=== PATIENT | female | born 1980 | race Caucasian/White ===

== ENCOUNTER 2016-07-12 14:04 | Emergency (ER) | payer OTHER ==
[~2016-07-12] VITALS: Ht 172.7 cm; Wt 104.3 kg
[~2016-07-12 14:04] MED LIST: ACETAMINOPHEN500 M3 PO; APAP/BUTALBITAL1 TA1; FLEXERIL10 MG PO; FLEXERIL5 MG PO; HYDROCODONE1 TABLET PO; HYDROXYZINE HCL50 MG PO; IBUPROFEN 600M600 MG PO; IBUPROFEN200 MG PO; IBUPROFEN600 MG PO; NOMEDS; PREDNISONE 20MG20 MG PO; TESSALON PERLE100 MG PO; ZITHROMAX Z PA250 MG PO
[2016-07-12] MEDS ORDERED: ETODOLAC400 MG PO (16:40)
--- NOTE | 2016-07-12 16:41 | Emergency Room Report ---
History of Present Illness Time Seen by [id number] Presenting Problem in Triage Pt arrived:Walked Presenting Problem:TWISTED LEFT KNEE ON 07/07/16 Onset of symptoms date/time:07/07/16 or onset unknown for: Treatment Prior to Arrival: RN FAMILY Provided by: Sepsis Risk Assessment: Temp: 98.6 B/P: 132/89 MAP: 110 Pulse: 95 Resp: 20 Recent fever? N Clinical Suspician of Infection? N Mental Status: 1 - Regular (Normal Baseline) Sepsis Risk:Low Sepsis Risk Have you (or family members/close friends) recently traveled outside the [place]? N If Yes, where/when: Have you had exposure to infectious disease within the past month? N TB? Other? Specify: Source patient, RN notes reviewed, RN/MD Exam Limitations no limitations Comment This is a 36-year-old lady that twisted her LEFT knee on July 07, here with persistent pain and limping. Patient denies any other associated injuries at this time. ALLERGIES Coded Allergies: No Known Allergies (05/15/16) History Medical History General CAD? No Angina: No VT: No Hypertension? No Hyperlipidemia? No CHF? No DVT? No PE? No COPD? No Asthma? No Anemia? No GERD? No Gastric ulcers? No GI Bleed? No Hernia? No Thyroid Problems? No Hypothyroidism? No CVA? No Seizures? No Diabetes? No Renal Insuffiency? No End Stage Renal Disease? No UTI? Yes Stones? No GB Disease: No Nephritic Syndrome? No Asplenia? No Hepatitis? No Sickle Cell Disease? No Arthritis? No Migraines? No Cataracts? No Glaucoma? No MRSA? No HIV? No TB? No Anxiety? No Depression? No Cancer? 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 Family History Family Hx Diabetes No CAD No Hypertension Yes Hyperlipidemia Yes Cancer Yes TB No Social History Smoking Hx Smoker: Current Every Day Smoker Tobacco: Yes Type Cigarettes Packs/day < 1 Pack Are you/the child exposed to second-hand smoke: No Alcohol Alcohol: No Review of Systems All Other Systems Reviewed and Negative Musculoskeletal joint pain (left KNEE PAIN) Physical Exam Vital Signs Vital Signs Date Time Temp Pulse Resp B/P Pulse O2 O2 Flow FiO2 Ox Delivery Rate 07/12 1721 98.3 86 20 130/82 98 07/12 1710 98.3 86 20 130/82 98 07/12 1619 98.6 95 20 132/89 99 / 1520 98.4 88 20 147/92 99 General Appearance normal appearance, WD/WN, mild distress Neck normal inspection, non-tender, supple, full range of motion Respiratory Status Yes: trachea midline, chest symmetrical, non tender chest. No: respiratory distress. Lung Sounds bilateral: normal breath sounds, lungs clear. Cardiovascular normal exam, regular rate/rhythm, no peripheral edema, no gallop, no JVD, no murmur, no rub, normal peripheral pulses Gastrointestinal normal bowel sounds, normal exam, non tender, soft, no organomegaly Extremities LEFT knee tender to palpation, limited range of motion due to pain, anterior drawer maneuver negative, Leeanne maneuver negative. 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 No Comment On reevaluation patient is medically stable, clinically improving. Advised patient to avoid weightbearing on the LEFT lower extremity and follow-up with one of the local orthopedic surgeons per discharge instructions. Results/Orders Orders Procedure Date/time Status STABILIZE JOINT 07/12 1641 Active XRAY/CT/US XRAY/CT/US XRAY knee (left) XR interpretation by reviewed by me Xray Results normal/NAD, no fracture seen Departure Departure Time of Disposition 1639 Disposition DC Home or Self Care(routine) Clinical Impression Primary Impression: Left knee sprain Qualifiers: Encounter type: initial encounter Involved ligament of knee: unspecified ligament Qualified Code: S83.92XA - Sprain of unspecified site of left knee, initial encounter Condition STABLE Referrals Jamari GIL,René Stratton: Tomorrow-Call Office Patient Instructions DI for Knee Sprain, How to Use an Elastic Bandage-Knee Sprain Additional Instructions Follow-up with Dr. Kauffman at your earliest convenience, take the pain medications as directed. Discharge Counseling Counseled pt/family regarding diagnosis, test results, medications/RX, home care, follow up needs Comment Follow-up with Dr. Kauffman at your earliest convenience, take the pain medications as directed. Prescriptions Current Visit Scripts Etodolac 400 MG PO BIDP PRN pain #20 TAB ED Critical Care Critical Care No at [id number]
--- NOTE | 2016-07-12 16:41 | Emergency Room Report ---
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 N Clinical Suspician of Infection? N Mental Status: 1 - Regular (Normal Baseline) Sepsis Risk:Low Sepsis Risk Have you (or family members/close friends) recently traveled outside the [place]? N If Yes, where/when: Have you had exposure to infectious disease within the past month? N TB? Other? Specify: Source patient, RN notes reviewed, RN/MD Exam Limitations no limitations Comment This is a 36-year-old lady that twisted her LEFT knee on July 07, here with persistent pain and limping. Patient denies any other associated injuries at this time. ALLERGIES Coded Allergies: No Known Allergies (05/15/16) History Medical History General CAD? No Angina: No MN: No Hypertension? No Hyperlipidemia? No CHF? No DVT? No PE? No COPD? No Asthma? No Anemia? No GERD? No Gastric ulcers? No GI Bleed? No Hernia? No Thyroid Problems? No Hypothyroidism? No CVA? No Seizures? No Diabetes? No Renal Insuffiency? No End Stage Renal Disease? No UTI? Yes Stones? No GB Disease: No Nephritic Syndrome? No Asplenia? No Hepatitis? No Sickle Cell Disease? No Arthritis? No Migraines? No Cataracts? No Glaucoma? No MRSA? No HIV? No TB? No Anxiety? No Depression? No Cancer? 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 Family History Family Hx Diabetes No CAD No Hypertension Yes Hyperlipidemia Yes Cancer Yes TB No Social History Smoking Hx Smoker: Current Every Day Smoker Tobacco: Yes Type Cigarettes Packs/day < 1 Pack Are you/the child exposed to second-hand smoke: No Alcohol Alcohol: No Review of Systems All Other Systems Reviewed and Negative Musculoskeletal joint pain (left KNEE PAIN) Physical Exam Vital Signs Vital Signs Date Time Temp Pulse Resp B/P Pulse O2 O2 Flow FiO2 Ox Delivery Rate 07/12 1721 98.3 86 20 130/82 98 07/12 1710 98.3 86 20 130/82 98 07/12 1619 98.6 95 20 132/89 99 / 1520 98.4 88 20 147/92 99 General Appearance normal appearance, WD/WN, mild distress Neck normal inspection, non-tender, supple, full range of motion Respiratory Status Yes: trachea midline, chest symmetrical, non tender chest. No: respiratory distress. Lung Sounds bilateral: normal breath sounds, lungs clear. Cardiovascular normal exam, regular rate/rhythm, no peripheral edema, no gallop, no JVD, no murmur, no rub, normal peripheral pulses Gastrointestinal normal bowel sounds, normal exam, non tender, soft, no organomegaly Extremities LEFT knee tender to palpation, limited range of motion due to pain, anterior drawer maneuver negative, Leeanne maneuver negative. 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 No Comment On reevaluation patient is medically stable, clinically improving. Advised patient to avoid weightbearing on the LEFT lower extremity and follow-up with one of the local orthopedic surgeons per discharge instructions. Results/Orders Orders Procedure Date/time Status STABILIZE JOINT 07/12 1641 Active XRAY/CT/US XRAY/CT/US XRAY knee (left) XR interpretation by reviewed by me Xray Results normal/NAD, no fracture seen Departure Departure Time of Disposition 1639 Disposition DC Home or Self Care(routine) Clinical Impression Primary Impression: Left knee sprain Qualifiers: Encounter type: initial encounter Involved ligament of knee: unspecified ligament Qualified Code: S83.92XA - Sprain of unspecified site of left knee, initial encounter Condition STABLE Referrals Jamari GIL,René Stratton: [facility]Call Office Patient Instructions DI for Knee Sprain, How to Use an Elastic Bandage-Knee Sprain Additional Instructions Follow-up with Dr. Kauffman at your earliest convenience, take the pain medications as directed. Discharge Counseling Counseled pt/family regarding diagnosis, test results, medications/RX, home care, follow up needs Comment Follow-up with Dr. Kauffman at your earliest convenience, take the pain medications as directed. Prescriptions Current Visit Scripts Etodolac 400 MG PO BIDP PRN pain #20 TAB ED Critical Care Critical Care No at 3211
[2016-07-12 17:21] VITALS: BP 130/82
--- NOTE | 2016-07-12 20:42 | RADIOLOGY REPORT PS360 ---
KNEE-3 VIEWS-LT ORDERING PHYSICIAN : Robbi Bansal MD PATIENT AGE: 36 years GENDER: Female INDICATION: KNEE PAIN 3 views TECHNIQUE: 3 views left knee COMPARISON: No previous none FINDINGS Joint spaces well-maintained there are some early sharpening joint margins with scant tricompartmental marginal osteophytes developing which may reflect some early degenerative changes. Unimpressive but noted. The medial and lateral compartment appear well maintained. Upper normal joint fluid at suprapatellar bursa-no prominent joint effusion. Bones well mineralized. IMPRESSION: Left knee intact - with only scant very early degenerative changes
== END 2016-07-12 17:23 | disposition home or self-care (01) ==
LOC: ER 14:04
DX: S83.92XA Sprain of unspecified site of left knee, initial encounter (principal); X50.1XXA Overexertion from prolonged static or awkward postures, initial encounter; Y92.69 Other specified industrial and construction area as the place of occurrence of the external cause; Y99.0 Civilian activity done for income or pay

== ENCOUNTER 2016-11-06 18:45 | Emergency (ER) | payer SELFPAY ==
[~2016-11-06] VITALS: Ht 172.7 cm; Wt 97.5 kg
[~2016-11-06 18:45] MED LIST changes: +ETODOLAC400 MG PO
--- NOTE | 2016-11-06 19:25 | Emergency Room Report ---
History of Present Illness Time Seen by 1905 Presenting Problem in Triage Pt arrived:Walked Presenting Problem:PT REPORTS PAIN ACROSS THORACIC AREA OF BACK X5 DAY. PT STATES HAS HAD A PRODUCTIVE COUGH FOR APPROX 1 MONTH. 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 N Clinical Suspician of Infection? N Mental Status: 1 - Regular (Normal Baseline) Sepsis Risk:Low Sepsis Risk Have you (or family members/close friends) recently traveled outside the [place]? N If Yes, where/when: Have you had exposure to infectious disease within the past month? N TB? Other? Specify: Source patient, RN notes reviewed Exam Limitations no limitations Comment Pt reports she has had a productive cough for about 2 months but over the past 5 days has had a sharp pain in her back between her shoulder blades that is worse iwht the cough and worse with a deep breath. Productive cough with yellow sputum but no blood but she does smoke 1/2 ppd. She is not on hormones Cardiac Chest Pain Chest pain indicative of cardiac No ALLERGIES Coded Allergies: No Known Allergies (05/15/16) Home Medications Reported Medications No Known Home Medications History Medical History General CAD? No Angina: No PA: No Hypertension? No Hyperlipidemia? No CHF? No DVT? No PE? No COPD? No Asthma? No Anemia? No GERD? No Gastric ulcers? No GI Bleed? No Hernia? No Thyroid Problems? No Hypothyroidism? No CVA? No Seizures? No Diabetes? No Renal Insuffiency? No End Stage Renal Disease? No UTI? Yes Stones? No GB Disease: No Nephritic Syndrome? No Asplenia? No Hepatitis? No Sickle Cell Disease? No Arthritis? No Migraines? No Cataracts? No Glaucoma? No MRSA? No HIV? No TB? No Anxiety? No Depression? No Cancer? No More? 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 Family History Family Hx Diabetes No CAD No Hypertension Yes Hyperlipidemia Yes Cancer Yes TB No Social History Smoking Hx Smoker: Current Every Day Smoker Tobacco: Yes Type Cigarettes Packs/day < 1 Pack Alcohol Alcohol: No Review of Systems All Other Systems Reviewed and Negative Constitutional see HPI Respiratory see HPI Cardiovascular see HPI Physical Exam Vital Signs Vital Signs Date Time Temp Pulse Resp B/P Pulse O2 O2 Flow FiO2 Ox Delivery Rate 11/07 2027 102 18 177/86 98 11/06 1932 101 18 170/100 98 11/06 1854 98.6 110 18 177/86 98 General Appearance normal appearance, WD/WN Respiratory Status No: respiratory distress. Lung Sounds bilateral: normal breath sounds. 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 Yes Paulo was queried for this patient? Yes Reference #: [id number] Results/Orders Laboratory Tests 11/06/161932: Sodium Pending, Potassium Pending, Chloride Pending, Carbon Dioxide Pending, BUN Pending, Creatinine Pending, Estimated Creat Clear Pending, Estimated GFR (MDRD) Pending, Glucose Pending, Calcium Pending, Total Bilirubin Pending, AST Pending, ALT Pending, Alkaline Phosphatase Pending, Creatine Kinase Pending, CK-MB (CK-2) Rel Index Pending, CK and CKMB Interp Pending, Troponin I Pending, Total Protein Pending, Albumin Pending, Globulin Pending, Albumin/Globulin Ratio Pending, PT 10.1, INR 0.94, D-Dimer 106, WBC 10.8, RBC 5.23, Hgb 13.6, Hct 42.3, MCV 80.8 L , RDW 13.7, Plt Count 286, MPV 5.9 L, Gran % 53.5, Gran # 5.8, Lymphocytes % 39.7, Monocytes % 3.8, Eosinophils % 2.3, Basophils % 0.7, Lymphocytes # 4.3, Monocytes # 0.4, Eosinophils # 0.3, Basophils # 0.1, PUBS MCHC 32.2, MCH 26.0 L 11/06/161919: Creatine Kinase Cancelled, CK-MB (CK-2) Rel Index Cancelled, CK and CKMB Interp Cancelled, Troponin I Cancelled Current Medication Orders Sig/Nick Start time Last Medication Dose Route Stop Time Status Admin Sodium Chloride 1,000 ML .STK-MED ONE 11/06 1930 DC IV Albuterol/Ipratropium 3 ML ONCE ONE 11/06 1929 DC 11/06 INH 11/06 Albuterol/Ipratropium 0 .STK-MED ONE 11/06 1929 DC INH Sodium Chloride 10 ML PRN PRN 11/06 1929 AC IV 11/07 1917 Sodium Chloride 1,000 ML .Q4H 11/06 1929 AC 11/06 IV 11/06 Sodium Chloride 10 ML PRN PRN 11/06 1929 AC IV 11/07 1918 Orders Procedure Date/time Status ELECTROCARDIOGRAM REQUEST 11/07 1919 Active RT REQUEST DUONEB 11/06 1918 Active IV SALINE LOCK 11/06 1918 Active PROTHROMBIN TIME 11/06 1918 Complete D-DIMER 11/06 1918 Complete CBC WITH AUTO DIFF 11/06 1918 Complete CARDIAC ENZYMES 11/06 1918 Active CHEM 12 PROFILE 11/06 1918 Active CHEST(2 VIEWS-NOT PORTABLE) 11/06 1901 Active CM/EKG CM/EKG EKG rate (104-sinus tachycardia) XRAY/CT/US XRAY/CT/US XRAY chest XR interpretation by reviewed by me Xray Results normal/NAD Departure Departure Time of Disposition 2044 Disposition DC Home or Self Care(routine) Clinical Impression Primary Impression: Acute bronchitis Qualifiers: Bronchitis organism: unspecified organism Qualified Code: J20.9 - Acute bronchitis, unspecified Condition STABLE Referrals Pepe GIL,Laurita Membreno (Family): 2 Days-Call Office Patient Instructions Acute Bronchitis (Alternative Therapy), DI for Acute Bronchitis Additional Instructions Use meds as directed and if any worsening symptoms, return to the ED or followup with Dr. Cantu for re-evaluation Discharge Counseling Counseled pt/family regarding diagnosis, test results, medications/RX, home care, follow up needs Prescriptions Current Visit Scripts CEFDINIR (Cefdinir) 300 MG PO BID #20 CAP Albuterol (Albuterol-Hfa Inhaler) 2 PUFFS IH QID #1 INH GUAIFENESIN/CODEINE PHOSPHATE (ROBITUSSIN AC (Generic) Syrup) 5 ML PO Q4HP PRN cough #120 ML ED Critical Care Critical Care No If Critical Care minutes are documented, the time involved in the performance of seperately reportable procedures was not counted toward critical care time documented. I directly delivered medical care to this critically ill and/or injured patient. Timely evaluation and treatment was necessary to address the significant organ system(s) dysfunction present in this patient. at [id number]
--- NOTE | 2016-11-06 19:25 | Emergency Room Report ---
History of Present Illness Time Seen by 1905 Presenting Problem in Triage Pt arrived:Walked Presenting Problem:PT REPORTS PAIN ACROSS THORACIC AREA OF BACK X5 DAY. PT STATES HAS HAD A PRODUCTIVE COUGH FOR APPROX 1 MONTH. 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 N Clinical Suspician of Infection? N Mental Status: 1 - Regular (Normal Baseline) Sepsis Risk:Low Sepsis Risk Have you (or family members/close friends) recently traveled outside the [place]? N If Yes, where/when: Have you had exposure to infectious disease within the past month? N TB? Other? Specify: Source patient, RN notes reviewed Exam Limitations no limitations Comment Pt reports she has had a productive cough for about 2 months but over the past 5 days has had a sharp pain in her back between her shoulder blades that is worse iwht the cough and worse with a deep breath. Productive cough with yellow sputum but no blood but she does smoke 1/2 ppd. She is not on hormones Cardiac Chest Pain Chest pain indicative of cardiac No ALLERGIES Coded Allergies: No Known Allergies (05/15/16) Home Medications Reported Medications No Known Home Medications History Medical History General CAD? No Angina: No [place]: No Hypertension? No Hyperlipidemia? No CHF? No DVT? No PE? No COPD? No Asthma? No Anemia? No GERD? No Gastric ulcers? No GI Bleed? No Hernia? No Thyroid Problems? No Hypothyroidism? No CVA? No Seizures? No Diabetes? No Renal Insuffiency? No End Stage Renal Disease? No UTI? Yes Stones? No GB Disease: No Nephritic Syndrome? No Asplenia? No Hepatitis? No Sickle Cell Disease? No Arthritis? No Migraines? No Cataracts? No Glaucoma? No MRSA? No HIV? No TB? No Anxiety? No Depression? No Cancer? No More? 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 Family History Family Hx Diabetes No CAD No Hypertension Yes Hyperlipidemia Yes Cancer Yes TB No Social History Smoking Hx Smoker: Current Every Day Smoker Tobacco: Yes Type Cigarettes Packs/day < 1 Pack Alcohol Alcohol: No Review of Systems All Other Systems Reviewed and Negative Constitutional see HPI Respiratory see HPI Cardiovascular see HPI Physical Exam Vital Signs Vital Signs Date Time Temp Pulse Resp B/P Pulse O2 O2 Flow FiO2 Ox Delivery Rate 11/07 2027 102 18 177/86 98 11/06 1932 101 18 170/100 98 11/06 1854 98.6 110 18 177/86 98 General Appearance normal appearance, WD/WN Respiratory Status No: respiratory distress. Lung Sounds bilateral: normal breath sounds. 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 Yes Paulo was queried for this patient? Yes Reference #: [id number] Results/Orders Laboratory Tests 11/06/161932: Sodium Pending, Potassium Pending, Chloride Pending, Carbon Dioxide Pending, BUN Pending, Creatinine Pending, Estimated Creat Clear Pending, Estimated GFR (MDRD) Pending, Glucose Pending, Calcium Pending, Total Bilirubin Pending, AST Pending, ALT Pending, Alkaline Phosphatase Pending, Creatine Kinase Pending, CK-MB (CK-2) Rel Index Pending, CK and CKMB Interp Pending, Troponin I Pending, Total Protein Pending, Albumin Pending, Globulin Pending, Albumin/Globulin Ratio Pending, PT 10.1, INR 0.94, D-Dimer 106, WBC 10.8, RBC 5.23, Hgb 13.6, Hct 42.3, MCV 80.8 L , RDW 13.7, Plt Count 286, MPV 5.9 L, Gran % 53.5, Gran # 5.8, Lymphocytes % 39.7, Monocytes % 3.8, Eosinophils % 2.3, Basophils % 0.7, Lymphocytes # 4.3, Monocytes # 0.4, Eosinophils # 0.3, Basophils # 0.1, PUBS MCHC 32.2, MCH 26.0 L 11/06/161919: Creatine Kinase Cancelled, CK-MB (CK-2) Rel Index Cancelled, CK and CKMB Interp Cancelled, Troponin I Cancelled Current Medication Orders Sig/Nick Start time Last Medication Dose Route Stop Time Status Admin Sodium Chloride 1,000 ML .STK-MED ONE 11/06 1930 DC IV Albuterol/Ipratropium 3 ML ONCE ONE 11/06 1929 DC 11/06 INH 11/06 Albuterol/Ipratropium 0 .STK-MED ONE 11/06 1929 DC INH Sodium Chloride 10 ML PRN PRN 11/06 1929 AC IV 11/07 1917 Sodium Chloride 1,000 ML .Q4H 11/06 1929 AC 11/06 IV 11/06 Sodium Chloride 10 ML PRN PRN 11/06 1929 AC IV 11/07 1918 Orders Procedure Date/time Status ELECTROCARDIOGRAM REQUEST 11/07 1919 Active RT REQUEST DUONEB 11/06 1918 Active IV SALINE LOCK 11/06 1918 Active PROTHROMBIN TIME 11/06 1918 Complete D-DIMER 11/06 1918 Complete CBC WITH AUTO DIFF 11/06 1918 Complete CARDIAC ENZYMES 11/06 1918 Active CHEM 12 PROFILE 11/06 1918 Active CHEST(2 VIEWS-NOT PORTABLE) 11/06 1901 Active CM/EKG CM/EKG EKG rate (104-sinus tachycardia) XRAY/CT/US XRAY/CT/US XRAY chest XR interpretation by reviewed by me Xray Results normal/NAD Departure Departure Time of Disposition 2044 Disposition DC Home or Self Care(routine) Clinical Impression Primary Impression: Acute bronchitis Qualifiers: Bronchitis organism: unspecified organism Qualified Code: J20.9 - Acute bronchitis, unspecified Condition STABLE Referrals Pepe GIL,Laurita Membreno (Family): 2 Days-Call Office Patient Instructions Acute Bronchitis (Alternative Therapy), DI for Acute Bronchitis Additional Instructions Use meds as directed and if any worsening symptoms, return to the ED or followup with Dr. Cantu for re-evaluation Discharge Counseling Counseled pt/family regarding diagnosis, test results, medications/RX, home care, follow up needs Prescriptions Current Visit Scripts CEFDINIR (Cefdinir) 300 MG PO BID #20 CAP Albuterol (Albuterol-Hfa Inhaler) 2 PUFFS IH QID #1 INH GUAIFENESIN/CODEINE PHOSPHATE (ROBITUSSIN AC (Generic) Syrup) 5 ML PO Q4HP PRN cough #120 ML ED Critical Care Critical Care No If Critical Care minutes are documented, the time involved in the performance of seperately reportable procedures was not counted toward critical care time documented. I directly delivered medical care to this critically ill and/or injured patient. Timely evaluation and treatment was necessary to address the significant organ system(s) dysfunction present in this patient. at [id number]
[2016-11-06 20:15] LABS: LYMPH # 4.3 K/mm3 (0.7-4.5); LYMPH % 39.7 % (10-50.0)
[2016-11-06 20:20] LABS: HEMOGLOBIN 13.6 g/dL (12.2-16.2)
[2016-11-06 20:42] LABS: BUN 9 mg/dL (7-18)
[2016-11-06] MEDS ORDERED: ALBUTEROL-200 PUFFS/ IH (20:48)
[2016-11-06] MEDS ORDERED: GUAIFENESIN AN118 ML PO (20:48)
[2016-11-06] MEDS ORDERED: CEFDINIR 300MG300 MG PO (20:48)
[2016-11-06 20:49] LABS: GFR (ESTIMATED) 82 ML/MIN (59-)
[2016-11-06 21:50] VITALS: BP 115/71
--- NOTE | 2016-11-07 12:08 | RADIOLOGY REPORT PS360 ---
CHEST(2 VIEWS-NOT PORTABLE) Ordering Physician: Blaine White MD Patient Age: 36 years: Female HISTORY: COUGH, SOA, PAIN TECHNIQUE: PA and lateral chest FINDINGS Lungs clear no active disease. Heart jaison and mediastinal structures satisfactory. Chest wall T-spine satisfactory. Mild degenerative changes. COMPARISON is made to previous chest film 10/23/2013 and April 2013 CXR. No significant interval change IMPRESSION: . Stable chest nothing definitely acute
--- OUTSIDE RECORDS SUMMARY | 2016-11-08 01:41 | External Medical Summary Rpt ---
Author Author , Organization [employer] Address Unknown Phone Unavailable Care Team Providers Care Charge Out Clerk Name Role Phone DEVAN NUÑEZ MD, Unavailable Unavailable DEVAN Fontenot Unavailable Scott HOSKINS MD, III, MD, MD, Unavailable Unavailable Scott Parham MD Purpose Continuity of Care Document - 11-13-2012 through 2016 Problems Code Diagnosis DOS Provider Status 305.1 305.1 04-12-2013 [place] TOBACCO USE [facility] 786.50 786.50 04-12-2013 [place] CHEST PAIN [facility] 719.43 719.43 12-31-2012 [place] JOINT [facility] M E928.8 E928.8 12-31-2012 [place] ACCIDENT [place] 727.09 727.09 11-13-2012 [place] SYNOVITIS [place] J20.9 ACUTE BRONCHITIS, UNSPECIFIED J45.909 UNSPECIFIED ASTHMA, UNCOMPLICAT ED K37 UNSPECIFIED APPENDICITI S M25.559 PAIN IN UNSPECIFIED HIP R10.9 UNSPECIFIED ABDOMINAL PAIN S05.01XA INJ CONJUNCTIVA AND CORNEAL ABRASION W/O FB, RIGHT EYE, INIT S83.92XA SPRAIN OF UNSPECIFIED SITE OF LEFT KNEE, INITIAL ENCOUNTER Allergies, Adverse Reactions, Alerts Type Drug Allergy Adverse Reaction to Substance Substance Reaction Severity No Known Allergies - Unknown Unknown Nka Medications Na ND Rx Da Fi Fi Am Da Di Ph RX Ph St me C No te ll ll ou ys ag ar # ys at rm s nt no ma ic us Or Da si cy ia de te s n re d Sa 63 10 0 No li 80 -0 ne 70 3- Lo 10 20 ng Fl 07 13 er us 5 h Ac 10 ti ML ve Sy ri ng e 66 10 0 No PI 55 -0 RI 30 3- Lo N 00 20 ng 32 10 13 er 5 1 MG Ac ti TA ve BL ET Sa 63 10 0 No li 80 -0 ne 70 3- Lo 10 20 ng Fl 07 13 er us 5 h Ac 10 ti ML ve Sy ri ng e KE 00 05 0 No TO 40 -0 RO 93 6- Lo LA 79 20 ng C 60 13 er 60 1 Ac MG ti /2 ve ML AL OR 00 05 0 No PH 08 -0 EN 90 6- Lo AD 54 20 ng RI 00 13 er NE 6 Ac CI ti TR ve AT E 60 MG /2 ML Vital Signs 04-12-2013 14:45 Name Value Interpretat Reference Comment ion Range BP 73 mm[Hg] Diastolic BP Systolic 118 mm[Hg] Heart 84 /min Rate/Pulse O2% 97 % Respiratory 18 /min Rate 04-12-2013 13:28 Name Value Interpretat Reference Comment ion Range BP 62 mm[Hg] Diastolic BP Systolic 104 mm[Hg] Heart 90 /min Rate/Pulse O2% 97 % Respiratory 18 /min Rate 12-31-2012 11:34 Name Value Interpretat Reference Comment ion Range BP 91 mm[Hg] Diastolic BP Systolic 133 mm[Hg] Heart 95 /min Rate/Pulse O2% 97 % Respiratory 20 /min Rate 12-31-2012 11:33 Name Value Interpretat Reference Comment ion Range BP 91 mm[Hg] Diastolic BP Systolic 133 mm[Hg] Heart 95 /min Rate/Pulse O2% 97 % Respiratory 20 /min Rate 11-13-2012 21:54 Name Value Interpretat Reference Comment ion Range Body 98.5 [degF] Temperature BP 81 mm[Hg] Diastolic BP Systolic 142 mm[Hg] Heart 101 /min Rate/Pulse O2% 98 % Respiratory 16 /min Rate 11-13-2012 21:48 Name Value Interpretat Reference Comment ion Range BP 81 mm[Hg] Diastolic BP Systolic 142 mm[Hg] Heart 101 /min Rate/Pulse Results Labs Lab Lab Date Result Refere Interp Status Commen Order Detail nces retati t Range on COMPREHENSIVE METABOLIC PANEL (04-12-2013 13:15) Glucose 102 74-106 complet 013 mg/dL ed Bld-mCn 13:15 c BUN 7 mg/dL 7-18 complet Bld-mCn 013 ed c 13:15 Creat 0.7 0.6-1.0 complet SerPl-m 013 mg/dL ed Cnc 13:15 ESTIMAT 196 50-200 complet ED 013 ML/MIN ed CREATIN 13:15 INE CLEARAN CE GFR 98 59- complet (ESTIMA 013 ML/MIN ed AVTAR) 13:15 Sodium 140 136-145 complet SerPl-s 013 mmoL/L ed Cnc 13:15 Potassi 3.9 3.5-5.1 complet um 013 mmoL/L ed SerPl-s 13:15 Cnc Chlorid 102 98-107 complet e 013 mmoL/L ed SerPl-s 13:15 Cnc CO2 27 21.0-32 complet SerPl-s 013 mmoL/L .0 ed Cnc 13:15 Calcium 8.6 8.5-10. complet 013 mg/dL 1 ed SerPl-m 13:15 Cnc Prot 7.6 6.4-8.2 complet SerPl-m 013 gm/dL ed Cnc 13:15 Albumin 4.0 3.4-5.0 complet 013 gm/dL ed SerPl-m 13:15 Cnc Globuli 3.6 1.3-3.2 complet n 013 gm/dL ed Ser-mCn 13:15 c Albumin 1.1 UNK 1.1-1.8 complet /Glob 013 ed SerPl-m 13:15 Rto Bilirub 0.3 0.2-1.0 complet 013 mg/dL ed SerPl-m 13:15 Cnc AST 36 U/L 15-37 complet SerPl-c 013 ed Cnc 13:15 ALT 64 U/L 30-65 complet SerPl-c 013 ed Cnc 13:15 ALP 97 U/L 50-136 complet SerPl-c 013 ed Cnc 13:15 D Dimer PPP (04-12-2013 13:15) D Dimer 185 0-400 complet PPP 013 ng/mL ed 13:15 CBC with AUTO DIFF (04-12-2013 13:15) WBC # 03-2 12.2 4.8-10. complet Bld 013 K/MM3 8 ed Auto 13:15 RBC # 04-12-2 4.63 4.2-5.4 complet Bld 013 M/mm3 ed Auto 13:15 Hgb 04-12-2 13.1 12.2-16 complet Bld-mCn 013 g/dL .2 ed c 13:15 Hct Fr 39.9 % 37.0-47 complet Bld 013 .0 ed 13:15 MCV RBC 86.1 fl 82.2-97 complet 013 .8 ed 13:15 MCH RBC 28.3 pg 27-31.2 complet Qn 013 ed Auto 13:15 MEAN 32.8 31.8-35 complet CORPUSC 013 g/dl .4 ed ULAR 13:15 HGB CONC RDW RBC 15.3 % 11.5-17 complet Auto 013 .5 ed 13:15 Platele 272 142-424 complet t Bld 013 K/mm3 ed Ql 13:15 Manual MEAN 7.4 fl 7.4-10. complet PLATELE 013 4 ed T 13:15 VOLUME Granulo 04-12-2 62.7 % 37.0-80 complet cytes 013 .0 ed Fr Bld 13:15 Auto LYMPH % 04-12-2 30.6 % 10-50.0 complet 013 ed 13:15 Monocyt 04-12-2 4.1 % 1.7-9.3 complet es Fr 013 ed Bld 13:15 Auto Eosinop 04-12-2 2.1 % 0.1-12. complet hil Fr 013 0 ed Bld 13:15 Auto Basophi 04-12-2 0.6 % 0.1-2.0 complet ls Fr 013 ed Bld 13:15 Auto Granulo 10-03-2 7.7 1.8-7.8 complet cytes # 013 K/mm3 ed Bld 13:15 Auto Lymphoc -03-2 3.7 0.7-4.5 complet ytes Fr 013 K/mm3 ed Bld 13:15 Auto Monocyt 10-03-2 0.5 0.1-1.0 complet es # 013 K/mm3 ed Bld 13:15 Auto Eosinop 03-2 0.3 0.0-0.4 complet hil # 013 K/mm3 ed Bld 13:15 Auto Basophi 0.1 0-0.2 complet ls # 013 K/MM3 ed Bld 13:15 Auto Procedures Procedure DOS Code Location Performer Comment APPLICATI 93.54 Scott Ramirez III, MD Encounters Encounter Start End Date Code Location Performer Type Date Emergency LINDSAY NUÑEZ MD (ER) 3 13:26 3 14:48 [facility] Emergency LINDSAY Ramirez (ER) 3 11:23 3 11:34 [facility] Scott Spence Emergency LINDSAY Parham (ER) 3 21:30 3 21:54 [place] Scott
--- OUTSIDE RECORDS SUMMARY | 2016-11-08 01:41 | External Medical Summary Rpt ---
Author Author [employer] Organization [employer] Address Unknown Phone Unavailable Purpose Continuity of Care Document - through 2016
--- OUTSIDE RECORDS SUMMARY | 2016-11-08 01:41 | External Medical Summary Rpt ---
Demographics Preferred Language Kosovan Marital Status Unknown Shinto Affiliation Unknown Race Unknown Ethnic Group Unknown Author Author , Organization [employer] Address Unknown Phone Unavailable Purpose Continuity of Care Document - through 2016 Immunization No patient found.
--- OUTSIDE RECORDS SUMMARY | 2016-11-08 01:41 | External Medical Summary Rpt ---
Demographics Preferred Language Paraguayan Marital Status Unknown Shinto Affiliation Unknown Race Unknown Ethnic Group Unknown Author Author , Organization [employer] Address Unknown Phone Unavailable Purpose Continuity of Care Document - through 2016 Immunization No patient found.
--- OUTSIDE RECORDS SUMMARY | 2016-11-08 01:41 | External Medical Summary Rpt ---
Author Author , Organization [employer] Address Unknown Phone Unavailable Care Team Providers Care Sheriffs Detective Name Role Phone DEVAN NUÑEZ MD, Unavailable Unavailable DEVAN Fontenot Unavailable Scott HOSKINS MD, III, MD, MD, Unavailable Unavailable Scott Parham MD Purpose Continuity of Care Document - 11-13-2012 through 2016 Problems Code Diagnosis DOS Provider Status 305.1 305.1 04-12-2013 [place] TOBACCO USE [facility] 786.50 786.50 04-12-2013 [place] CHEST PAIN [facility] 719.43 719.43 12-31-2012 [place] JOINT [facility] M E928.8 E928.8 12-31-2012 [place] ACCIDENT [facility] 727.09 727.09 11-13-2012 [place] SYNOVITIS [facility] J20.9 ACUTE BRONCHITIS, UNSPECIFIED J45.909 UNSPECIFIED ASTHMA, [...] NUÑEZ MD (ER) 3 13:26 3 14:48 [facility] Emergency LINDSAY Ramirez (ER) 3 11:23 3 11:34 [facility] Scott Spence Emergency LINDSAY Parham (ER) 3 21:30 3 21:54 [facility] Scott
--- OUTSIDE RECORDS SUMMARY | 2016-11-08 01:42 | External Medical Summary Rpt ---
Author Author [employer] Purdy, [employer] Organization [employer] Address Unknown Phone Unavailable
--- OUTSIDE RECORDS SUMMARY | 2016-11-08 01:42 | External Medical Summary Rpt ---
Author Author , Organization [employer] Address Unknown Phone Unavailable Care Team Providers Care [employer] Worker Name Role Phone DEVAN NUÑEZ MD, Unavailable Unavailable DEVAN Fontenot Unavailable Scott HOSKINS MD, III, MD, MD, Unavailable Unavailable Scott Parham MD Purpose Continuity of Care Document - 11-13-2012 through 2016 Problems Code Diagnosis DOS Provider Status 305.1 305.1 04-12-2013 [place] TOBACCO USE [facility] 786.50 786.50 04-12-2013 [place] CHEST PAIN [facility] 719.43 719.43 12-31-2012 [place] JOINT [facility] M E928.8 E928.8 12-31-2012 [place] ACCIDENT [facility] 727.09 727.09 11-13-2012 [place] SYNOVITIS [facility] J20.9 ACUTE BRONCHITIS, UNSPECIFIED J45.909 UNSPECIFIED [...] NUÑEZ MD (ER) 3 13:26 3 14:48 [facility] Emergency LINDSAY Ramirez (ER) 3 11:23 3 11:34 [facility] Scott Sp[place] Emergency LINDSAY Parham (ER) 3 21:30 3 21:54 [facility] Scott
--- OUTSIDE RECORDS SUMMARY | 2016-11-08 01:42 | External Medical Summary Rpt ---
Demographics Preferred Language [place] Marital Status Unknown Oriental Orthodox Affiliation Unknown Race Unknown Ethnic Group Unknown Author Author , Organization [employer] Address Unknown Phone Unavailable Purpose Continuity of Care Document - through 2016 Immunization No patient found.
--- OUTSIDE RECORDS SUMMARY | 2016-11-08 01:42 | External Medical Summary Rpt ---
Demographics Preferred Language Brazilian Marital Status Unknown Gnosticist Affiliation Unknown Race Unknown Ethnic Group Unknown Author Author , Organization [employer] Address Unknown Phone Unavailable Purpose Continuity of Care Document - through 2016 Immunization No patient found.
--- OUTSIDE RECORDS SUMMARY | 2016-11-08 01:42 | External Medical Summary Rpt ---
Author Author , Organization [employer] Address Unknown Phone Unavailable Care Team Providers Care [employer] Name Role Phone DEVAN NUÑEZ MD, Unavailable Unavailable DEVAN Fontenot Unavailable Scott HOSKINS MD, III, MD, MD, Unavailable Unavailable Scott Parham MD Purpose Continuity of Care Document - 11-13-2012 through 2016 Problems Code Diagnosis DOS Provider Status 305.1 305.1 04-12-2013 [place] TOBACCO USE [facility] 786.50 786.50 04-12-2013 [place] CHEST PAIN [facility] 719.43 719.43 12-31-2012 [place] JOINT [facility] M E928.8 E928.8 12-31-2012 [place] ACCIDENT [facility] 727.09 727.09 11-13-2012 [place] SYNOVITIS [facility] J20.9 ACUTE BRONCHITIS, UNSPECIFIED J45.909 UNSPECIFIED ASTHMA, [...] NUÑEZ MD (ER) 3 13:26 3 14:48 [facility] Emergency LINDSAY Ramirez (ER) 3 11:23 3 11:34 [facility] Scott [facility] Emergency LINDSAY Parham (ER) 3 21:30 3 21:54 [facility] Scott
== END 2016-11-06 21:52 | disposition home or self-care (01) ==
LOC: ER 18:45
PROVIDERS: General Practice
DX: J20.9 Acute bronchitis, unspecified (principal); Z72.0 Tobacco use